=== PATIENT | female | born 1960 | race Caucasian/White ===

== ENCOUNTER 2017-12-12 14:49 | Observation (INO) | payer OTHER ==
[2017-12-12] MEDS ORDERED: Aspirin 81 mg CHEW TAB* 81 MG TAB.CHEW PO ONE (15:28)
[2017-12-12 15:31] LABS: ABS Basophils 0.1 10^3/ul (0-0.2); ABS Eosinophils 0.2 10^3/ul (0-0.6); ABS Lymphocytes 2.6 10^3/ul (1.0-4.8); ABS Monocytes 0.6 10^3/ul (0-0.8); ABS Neutrophils 5.6 10^3/ul (1.5-7.7); ABS Nucleated RBC 0 10^3/ul; Eosinophil % 2.1 % (0-6); Hematocrit 38 % (35-47); Hemoglobin 13.4 g/dl (12.0-16.0); Lymphocyte % 28.6 % (25-47); Mean Corpuscular HGB Conc 35 g/dl (31-36); Mean Corpuscular Hemoglobin 31 pg (27-31); Mean Corpuscular Volume 89 fL (80-97); Mean Platelet Volume 6.5 um3 (7.4-10.4); Nucleated Red Blood Cells % 0; Platelet Count 303 10^3/ul (150-450); Red Blood Count 4.29 10^6/ul (4.00-5.40); Red Cell Distribution Width 13 % (10.5-15)
--- NOTE | 2017-12-12 15:39 | ED ---
HPI Chest Pain - HPI Summary HPI Summary: This patient is a 57 year old F presenting to [facility] with a chief complaint of constant chest pain at 5/10 since 5 days ago (12/07/17). PMHx breast cancer, HLD, asymptomatic hypotension. Pt denies PMHx hypertension. She endorses upper back pain, and the chest pain is shooting, radiating pain up and down arms and into right sided jaw, cough, transient hand numbness, and a warm feeling in her chest. She notes that exertion doesnt change symptoms. FHx CAD grandfather 58, father 50, grandmother 62, uncle 40s. Pt smokes ppd, but doesnt drink. SHx lumpectomy, 6 months chemo, 8 months of radiation. Denies FHx PE, aneurysms. - History of Current Complaint Chief Complaint: EDChestPainROMI Time Seen by Provider: 12/12/17 15:18 Hx Obtained From: Patient Onset/Duration: Started Days Ago - 5 Timing: Constant, Lasting Days Initial Severity: Moderate Current Severity: Moderate Pain Intensity: 8 Pain Scale Used: 0-10 Numeric Chest Pain Location: Discrete at: - mid to right anterior, Mid Sternal, Right Anterior Chest Pain Radiates: Yes Chest Pain Radiates To:: Back, Arm - both arms, hands, Jaw Character: Pressure/Squeezing, Other: - "constant" Aggravating Factor(s): Nothing Alleviating Factor(s): Nothing Associated Signs and Symptoms: Positive: Chest Pain, Numbness, Tingling, Cough, Back Pain - Allergy/Home Medications Allergies/Adverse Reactions: Allergies Allergy/AdvReac Type Severity Reaction Status Date / Time bee venom protein (honey bee) Allergy Anaphylatic Verified 12/12/17 15:09 Shock erythromycin base Allergy Nausea And Verified 12/12/17 15:09 Vomiting meperidine Allergy Hives Verified 12/12/17 15:09 Penicillins Allergy Rash Verified 12/12/17 15:09 Home Medications: Home Medications Calcium Carbonate CHEW TAB* [Tums*] 500 mg PO BID PRN 12/12/17 [History Confirmed 12/12/17] Multivitamins/Minerals TAB* [Theragran/minerals TAB*] 1 tab PO DAILY 12/12/17 [ History Confirmed 12/12/17] Turmeric Root Extract [Ra Turmeric] 500 mg PO DAILY 12/12/17 [History Confirmed 12/12/17] PMH/Surg Hx/FS Hx/Imm Hx Endocrine/Hematology History: Denies: Hx Diabetes, Hx Thyroid Disease Cardiovascular History: Reports: Hx Hypercholesterolemia, Hx Hypotension - asymptomatic Denies: Hx Hypertension Respiratory History: Reports: Other Respiratory Problems/Disorders - RECENT BRONCHITIS, FLU, CURRENTLY COUGH AND SOB Denies: Hx Asthma, Hx Chronic Obstructive Pulmonary Disease (COPD) GI History: Denies: Hx Ulcer Sensory History: Denies: Hx Legally Blind Opthamlomology History: Denies: Hx Legally Blind EENT History: Denies: Hx Deafness - Cancer History Cancer Type, Location and Year: Breast Ca 2002 - chemo and radiation treatments Hx Chemotherapy: Yes - BREAST Hx Radiation Therapy: Yes - BREAST - Surgical History Surgery Procedure, Year, and Place: Hysterectomy, fertility surgery. right lumpectomy Infectious Disease History: No Infectious Disease History: Denies: Hx Clostridium Difficile, Hx Hepatitis, Hx Human Immunodeficiency Virus (HIV), Hx of Known/Suspected MRSA, Traveled Outside the [place] in Last 30 Days - Family History Known Family History: Positive: Cardiac Disease - father, grandfather, uncle, grandmother - Social History Alcohol Use: None Substance Use Type: Reports: Marijuana Substance Use Comment - Amount & Last Used: OCCASIONAL Hx Tobacco Use: Yes Smoking Status (MU): Light Every Day Tobacco Smoker Type: Cigarettes Review of Systems Negative: Fever, Chills Negative: Erythema Negative: Sore Throat Positive: Chest Pain Positive: Cough. Negative: Shortness Of Breath Negative: Abdominal Pain, Vomiting, Nausea Negative: dysuria, hematuria Positive: Myalgia - back pain, arm pain, right sided neck/jaw pain. Negative: Edema Negative: Rash Neurological: Other - NEGATIVE: dizziness All Other Systems Reviewed And Are Negative: Yes Physical Exam - Summary Physical Exam Summary: Constitutional: Well-developed, Well-nourished, Alert. (-) Distressed Skin: Warm, Dry HENT: Normocephalic; Atraumatic Eyes: Conjunctiva normal Neck: Musculoskeletal ROM normal neck. (-) JVD, (-) Stridor, (-) Tracheal deviation Cardio: Rhythm regular, rate normal, Heart sounds normal; Intact distal pulses; The pedal pulses are 2+ and symmetric. Radial pulses are 2+ and symmetric. (-) Murmur Pulmonary/Chest wall: Effort normal. (-) Respiratory distress, (-) Wheezes, (-) Rales Abd: Soft, (-), epigastric tenderness, (-) Distension, (-) Guarding, (-) Rebound Musculoskeletal: (-) Edema, mild TTP over right costocondral junction, does not exactly reproduce symptoms. Lymph: (-) Cervical adenopathy Neuro: Alert, Oriented x3 Psych: Mood and affect Normal Triage Information Reviewed: Yes Vital Signs On Initial Exam: Initial Vitals Temp Pulse Resp BP Pulse Ox 97.4 F 81 17 132/64 100 12/12/17 15:04 12/12/17 15:04 12/12/17 15:04 12/12/17 15:04 12/12/17 15:04 Vital Signs Reviewed: Yes Diagnostics - Vital Signs Vital Signs Temp Pulse Resp BP Pulse Ox 12/12/17 15:04 97.4 F 81 17 132/64 100 - Laboratory Lab Results: Lab Results 12/12/17 Range/Units 15:19 WBC 9.0 (3.5-10.8) 10^3/ul RBC 4.29 (4.00-5.40) 10^6/ul Hgb 13.4 (12.0-16.0) g/dl Hct 38 (35-47) % MCV 89 (80-97) fL MCH 31 (27-31) pg MCHC 35 (31-36) g/dl RDW 13 (10.5-15) % Plt Count 303 (150-450) 10^3/ul MPV 6.5 L (7.4-10.4) um3 Neut % (Auto) 62.0 (38-83) % Lymph % (Auto) 28.6 (25-47) % [place] % (Auto) 6.5 (0-7) % Eos % (Auto) 2.1 (0-6) % Baso % (Auto) 0.8 (0-2) % Absolute Neuts (auto) 5.6 (1.5-7.7) 10^3/ul Absolute Lymphs (auto) 2.6 (1.0-4.8) 10^3/ul Absolute Monos (auto) 0.6 (0-0.8) 10^3/ul Absolute Eos (auto) 0.2 (0-0.6) 10^3/ul Absolute Basos (auto) 0.1 (0-0.2) 10^3/ul Absolute Nucleated RBC 0 10^3/ul Nucleated RBC % 0 Result Diagrams: 12/12/17 15:19 12/12/17 15:19 Lab Statement: Any lab studies that have been ordered have been reviewed, and results considered in the medical decision making process. - CT CTA chest/thorax CT Interpretation: No Acute Changes CT Interpretation Completed By: Radiologist - NO CT EVIDENCE OF ACUTE PULMONARY EMBOLIC DISEASE. Dr. Gracia has reviewed this report. - EKG 1514 Cardiac Rate: NL - 79 EKG Rhythm: Sinus Rhythm ST Segment: Normal EKG Interpretation: No STEMI Chest Pain Course/Dx - Course Course Of Treatment: CTA chest/thorax (-). EKG reveals normal sinus rythym at 79 BPM, no STEMI. pt given ASA, omnipaque, NTG. Glucose 140. Lactic acid 2.3 - Diagnoses Provider Diagnoses: Chest pain, unspecified - Provider Notifications Discussed Care Of Patient With: Obdulia Julio Time Discussed With Above Provider: 18:00 Instructed by Provider To: Other - Accepted admission. Discharge - Sign-Out/Discharge Documenting (check all that apply): Patient Departure - admit - Discharge Plan Condition: Fair Disposition: ADMITTED TO [facility] Referrals: Mariah Estrada MD [Primary Care Provider] - - Billing Disposition and Condition Condition: FAIR Disposition: Admitted to [facility]
[2017-12-12 16:05] LABS: EGFR Non-African American 64.5 (>60)
[2017-12-12] MEDS ORDERED: Iohexol 350* (CONTRAST) 500 ML MDV IV ONE (16:14)
--- NOTE | 2017-12-12 16:51 | RAD ---
INDICATION: Chest pain. Short of breath. Evaluate for pulmonary embolus. COMPARISON: Chest x-ray August 25, 2014 TECHNIQUE: Axial source images were obtained from the thoracic inlet to the hemidiaphragms following administration of [address] angiographic technique was utilized. Coronal and sagittal reconstructed images were acquired. CHEST FINDINGS: Neck/thyroid: The visualized neck to include the thyroid appear normal. Chest wall: There are no acute abnormalities of the bony thorax or chest wall. There is right breast surgery There is no supraclavicular, infraclavicular, or axillary lymphadenopathy. Lungs : There are no pulmonary parenchymal masses or infiltrates. There is a tiny pneumatocele left lung base, unchanged. The pulmonary interstitium appears normal. There are no endobronchial lesions. Cardiomediastinal structures: There is no CT evidence of acute pulmonary embolic disease. The heart is normal in size. There is no pericardial effusion. There is no evidence of aortic aneurysm or dissection. There is no mediastinal or hilar adenopathy. The esophagus appears normal. Pleura : There are no pleural-based masses or effusions. Other: None. IMPRESSION: NO CT EVIDENCE OF ACUTE PULMONARY EMBOLIC DISEASE.
[2017-12-12] MEDS ORDERED: Nitroglycerin TAB 0.4 MG* 0.4 MG TAB SL ONE (17:27)
[2017-12-12] MEDS ORDERED: Ondansetron INJ* 2 MG/ML VIAL IV PRN (19:11)
[2017-12-12] MEDS ORDERED: oxyCODONE/Acetamin 5/325 MG* TAB PO PRN (19:11)
[2017-12-12] MEDS ORDERED: Al Hydrox/Mg Hydrox/Simet LIQ* 30 ML UDC PO PRN (19:11)
[2017-12-12] MEDS ORDERED: Albuterol 2.5 MG/3 ML NEB.SOL* (0.083%) INH PRN (19:11)
[2017-12-12] MEDS ORDERED: Magnesium Hydroxide LIQ* 30 ML UDC PO PRN (19:11)
[2017-12-12] MEDS ORDERED: Acetaminophen TAB* 325 MG PO PRN (19:11)
[2017-12-12] MEDS ORDERED: Calcium Carbonate CHEW TAB* 500 MG (TUMS) PO PRN (19:15)
--- NOTE | 2017-12-12 20:52 | HP ---
CC: Dr. Estrada * ADMISSION HISTORY AND PHYSICAL: DATE OF ADMISSION: 12/12/17 PATIENT OF: Obdulia Julio MD PRIMARY CARE PHYSICIAN: Dr. Estrada. CHIEF COMPLAINT: Chest pain. ATTENDING HOSPITALIST WHILE IN HOSPITAL: Obdulia Julio MD * (DICTATED BY KERRIE MÉNDEZ) HISTORY OF PRESENT ILLNESS: Mrs. Worley is a pleasant 57-year-old female who has past medical history significant for hyperlipidemia and remote history of breast cancer for which she had lumpectomy followed by chemotherapy and radiation and since then has been on remission, who presented to the emergency room today with complaints of five days' history of intermittent chest tightness. The patient described it as a vague sensation of tightness and heavy weight over her chest that has been intermittent, but gotten worse for the past five days. She denies any associated nausea, vomiting, diaphoresis, shortness of breath, headache or dizziness. She has never had any history of coronary artery disease; however, she has significant family history of multiple WI on both her grandparents and parents with early related to cardiac disease in their 50s. The patient also continued to smoke half a pack per day and has known history of high cholesterol adding to her multiple other risks for coronary artery disease. She was evaluated in the emergency room and found to have a flat troponin with value of 0.0 on the first draw and another 0.0 three hours later. Her EKG showed no significant ST changes or dysrhythmia. She had a chest x-ray that showed no evidence of acute cardiopulmonary disease. Given her ongoing symptoms and her multiple risk factors, we were asked to see the patient for further evaluation and to consider admission to telemetry for close observation and possible stress test in the morning. PAST MEDICAL HISTORY: As mentioned above, significant for hyperlipidemia, attention deficit hyperactivity disorder, history of breast cancer 14 years ago for which she had a lumpectomy and followed by a short period of six months of chemotherapy and external radiation. PAST SURGICAL HISTORY: Significant for a right breast lumpectomy 14 years ago. CURRENT MEDICATIONS: Her medications at home include: 1. Lipitor 20 mg p.o. daily. 2. Calcium carbonate. 3. Tums 500 mg p.o. b.i.d. as needed for indigestion. 4. Ritalin 10 mg p.o. b.i.d. 5. Turmeric root 500 mg p.o. daily. 6. Drisdol 5000 units p.o. daily. ALLERGIES: Include BEE VENOM and ERYTHROMYCIN BASE. FAMILY HISTORY: As mentioned above. Significant for coronary artery disease with WI in both maternal and paternal sides with grandfather at age 58 from a severe heart disease. 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 She continued to smoke half a pack per day and has been for the past 40 years, she considered quitting and had tried Chantix and nicotine patches in the past with no improvement. She denies alcohol intake or illicit drug use. She lives with significant other, Faisal, who is the healthcare proxy carrier. REVIEW OF SYSTEMS: See HPI, otherwise 14-point review of systems were evaluated and they were essentially negative. PHYSICAL EXAMINATION GENERAL: She is a pleasant healthy-appearing middle-aged female, appears comfortable and in no acute distress or discomfort at the time of admission. VITAL SIGNS: Reveal temperature of 97.4, pulse of 81, respirations of 17, O2 sats of 100% on room air, and blood pressure of 132/64. HEENT: Head is normocephalic, atraumatic. Sclerae anicteric. PERRLA. EOMs intact. Oropharynx is pink and moist. NECK: Supple. Trachea midline. No cervical adenopathy, thyromegaly or JVD. LUNGS: Clear to auscultation bilaterally. HEART: Regular rate and rhythm. Normal S1 and S2 without rubs, murmurs or gallops. BACK: With normal curvature and no CVA tenderness. BREASTS EXAM: Deferred at this time. ABDOMEN: Soft, nontender, and nondistended. No hernias, masses or hepatosplenomegaly. NEUROLOGIC: Grossly intact. She is awake, alert, and oriented x4. Neurological exam was grossly normal. EXTREMITIES: Without cyanosis, clubbing or edema. Rectal exam deferred at this time. LABORATORY WORKUP: CBC with white count of 9000, hemoglobin 13.4, hematocrit of 38, and platelets of 303,000. Chemistry panel with sodium of 141, potassium slightly low with value of 3.3, glucose of 140, CO2 of 26, BUN of 12, and creatinine of 0.9, lactic acid slightly up at 2.3, and LFTs essentially within normal limits. Troponin two draws three hours apart were essentially negative. ACCESSORY DIAGNOSTIC DATA: EKG with no ST elevation or dysrhythmia. Chest and thorax CTA showed no evidence of PE or other pathology. IMPRESSION: A 57-year-old female with past medical history significant for hyperlipidemia and remote history of breast cancer, who presented to the emergency room today with five days' history of intermittent chest tightness and has multiple risk factors and significant family history for coronary artery disease. ASSESSMENT AND PLAN: 1. Chest pain. The patient will be admitted for close observation at the telemetry unit. We will obtain trending troponins and repeat EKG in the morning. Oxygen supplement will be given as well as a pain medication as needed. I will set her up for a nuclear stress test in the morning since she has not had one in six to seven years. I will also check her lipid panel in the a.m. She appears to be stable from a cardiac standpoint upon admission. 2. Hyperlipidemia. We will continue her statin and recheck lipid panel tomorrow. 3. History of breast cancer. She is on remission at this time. We will continue supportive care. 4. Nicotine dependence. I advised to quit smoking since it increased her risk of cardiovascular disease and will provide nicotine patch while she is admitted. 5. DVT prophylaxis. Given her age and history of cancer, she is a high risk, will be covered with subcu heparin. 6. Code status. She is a full code. TIME SPENT: Approximately 60 minutes were spent admitting this patient with greater than 50% spent on taking history and performing physical exam. I have discussed the case with my attending, Dr. Julio, who agreed to plan of care. KERRIE MÉNDEZ [id number]/CPS #: [id number] MIKE
[2017-12-12] MEDS: Nicotine PATCH 14 MG/24 HR* PATCH TRANSDERM SCH (21:34)
[2017-12-12] MEDS: Heparin VIAL(*) 5000 UNITS/ML VIAL (FIVE THOUSAND) SUBCUT SCH (21:38)
[2017-12-12] MEDS ORDERED: Multivitamins/Minerals TAB PO SCH (22:15)
[2017-12-12] MEDS ORDERED: Atorvastatin* 20 MG TAB PO SCH (22:15)
[2017-12-13] MEDS: Heparin VIAL(*) 5000 UNITS/ML VIAL (FIVE THOUSAND) SUBCUT SCH (05:53)
[2017-12-13 06:55] LABS: ABS Basophils 0 10^3/ul (0-0.2); ABS Eosinophils 0.2 10^3/ul (0-0.6); ABS Lymphocytes 2.7 10^3/ul (1.0-4.8); ABS Monocytes 0.6 10^3/ul (0-0.8); ABS Neutrophils 3.9 10^3/ul (1.5-7.7); ABS Nucleated RBC 0 10^3/ul; Eosinophil % 3.3 % (0-6); Hematocrit 39 % (35-47); Hemoglobin 13.4 g/dl (12.0-16.0); Lymphocyte % 36.4 % (25-47); Mean Corpuscular HGB Conc 34 g/dl (31-36); Mean Corpuscular Hemoglobin 31 pg (27-31); Mean Corpuscular Volume 89 fL (80-97); Mean Platelet Volume 6.6 um3 (7.4-10.4); Nucleated Red Blood Cells % 0; Platelet Count 306 10^3/ul (150-450); Red Blood Count 4.38 10^6/ul (4.00-5.40); Red Cell Distribution Width 13 % (10.5-15); White Blood Count 7.5 10^3/ul (3.5-10.8)
[2017-12-13 07:15] LABS: EGFR Non-African American 87.7 (>60)
[2017-12-13] MEDS: Nicotine PATCH 14 MG/24 HR* PATCH TRANSDERM SCH (09:02)
--- NOTE | 2017-12-13 11:26 | RAD ---
INDICATION: Chest pain. COMPARISON: There are no prior studies available for comparison. Technique: A single day myocardial perfusion stress study was performed. Initially a resting study was performed. The patient was given an intravenous injection of 10.5 mCi of technetium 99m tetrofosmin and and the heart was imaged in multiple projections. The patient returned later in the day and under the direction of Dr. Dyer, the patient was exercised to a peak heart rate of 174 beats per minute which was 107% of the maximum predicted heart rate. Subsequently the patient was given intravenous injection of 25.3 mCi of technetium 99m tetrofosmin and the heart was imaged in multiple projections. Images were reconstructed in the axial, sagittal and coronal planes and in a 3-D format. FINDINGS: There appear to be hypokinesis within the septum. The left ventricular ejection fraction was calculated to be 59%. No focal perfusion abnormalities are seen. There is no evidence for infarct or ischemia. IMPRESSION: NO EVIDENCE FOR INFARCT OR ISCHEMIA. ASSESSMENT: Low risk. Based on imaging criteria from ACC/AHA 2002 Guideline Update for the Management of Patients With Chronic Stable Angina Table 23. Noninvasive Risk Stratification.
[2017-12-13 13:28] VITALS: BP 149/69
--- NOTE | 2017-12-13 15:32 | DS ---
CC: Dr. Estrada * DISCHARGE SUMMARY: DATE OF ADMISSION: 12/12/17 DATE OF DISCHARGE: 12/13/17 PRIMARY CARE PROVIDER: Dr. Estrada. DISCHARGE DIAGNOSIS: Chest pain with low probability cardiac stress test documented on 12/13/17. MEDICATIONS AT DISCHARGE: Include: 1. Vitamin D3 5000 units daily. 2. Turmeric 500 mg daily. 3. Multivitamin 1 tablet daily. 4. Ritalin 10 mg b.i.d. 5. Calcium carbonate mg b.i.d. 6. Lipitor 20 mg daily. LABORATORY DATA/DIAGNOSTIC STUDIES: Laboratory data and studies performed during the hospital stay included: The patient's troponins throughout her hospital stay were 0. On 12/13/17, sodium of 139, potassium 3.9, chloride 108, carbon dioxide 25, BUN 12, creatinine 0.69. Triglycerides were 130, cholesterol of 202, LDL of 136, and HDL of 39. On 12/13/17, white blood cell count of 7.5, hemoglobin 13.4, hematocrit of 39, and platelets 306. The patient's nuclear medicine cardiac stress test documented on 12/13/17, findings, impression, "there appeared to be hypokinesis within the septum. The left ventricular ejection fraction was calculated at 69%. No focal perfusion abnormalities are seen. There was no evidence of infarct or ischemia. Low risk." CT angiogram of the chest obtained on 12/12/17, impression "no CT evidence of acute pulmonary embolic disease." HOSPITALIZATION COURSE: Radha Worley is a 57-year-old female with history of breast cancer who presented to the hospital complaining of substernal chest tightness. For further details of the patient's presentation, please see history and physical dictated at admission. Shortly, the patient continued to feel well throughout her hospital stay apart from that when she started walking on treadmill, she still had some subtle discomfort in her chest. There were no EKG abnormalities during her treadmill stress test and her nuclear portion of the stress test was also negative. With her history of malignancy, CT angiogram of the chest was obtained, which showed no PE. Her troponins were negative throughout her hospital stay and the EKG was not abnormal. At this point, the patient wishes to go home. She stated that she feels fine and she no longer complained of chest pain by the time of discharge. She is going to be recommended to follow up with her primary care provider in approximately 4 to 7 days. PHYSICAL EXAM AT DISCHARGE: Unchanged from admission. [id number]/CPS #: [id number] MIKE
[2017-12-13] MEDS ORDERED: Nicotine Patch Removal NOTE PATCH OFF SCH (21:00)
== END 2017-12-13 13:31 | disposition home or self-care (01) ==
LOC: ED 14:49 → MEDTELE 19:11
PROVIDERS: ADMIT Hospitalist; ATTEND Internal Medicine
DX: R07.9 Chest pain, unspecified (principal); M54.9 Dorsalgia, unspecified; Z88.0 Allergy status to penicillin; Z87.09 Personal history of other diseases of the respiratory system; F17.210 Nicotine dependence, cigarettes, uncomplicated; Z90.710 Acquired absence of both cervix and uterus; Z85.3 Personal history of malignant neoplasm of breast
CPT/HCPCS: 36415; 71275; 78452; 80048; 80053; 80061; 83605; 84484; 85025; 86703; 93005; 93017; 99283; A9270-GY; A9502; G0378; J1644; Q9967